=== PATIENT | female | born 2000 | race Caucasian/White ===

== ENCOUNTER 2021-09-21 00:20 | Inpatient (IN) | payer OTHER ==
[~2021-09-21] VITALS: Ht 170 cm; Wt 58.1 kg
[2021-09-21 00:49] LABS: BILIRUBIN,URINE NEGATIVE (NEGATIVE); CLARITY,URINE CLEAR; COLOR,URINE YELLOW; GLUCOSE, URINE (UA) NEGATIVE (NEGATIVE); KETONES,URINE NEGATIVE (NEGATIVE); LEUKOCYTE ESTERASE ,URINE 2+ (NEGATIVE); NITRITE,URINE NEGATIVE (NEGATIVE); PROTEIN,URINE NEGATIVE (NEGATIVE)
[2021-09-21 01:01] LABS: BACTERIA,URINE MODERATE /HPF; SQUAMOUS EPITHELIAL CELL,UR 0-2 /HPF; WBC,URINE >100 /HPF
[2021-09-21 01:22] LABS: BASOPHILS % (AUTO) 0 % (0-10); EOSINOPHILS # (AUTO) 0.2 10^3/uL (0.0-0.3); EOSINOPHILS % (AUTO) 1 % (0-10); HEMATOCRIT 41 % (35-52); HEMOGLOBIN 12.9 g/dL (11.5-16.0); LYMPHOCYTES # (AUTO) 2.3 10^3/uL (1.0-4.0); LYMPHOCYTES % (AUTO) 17 % (12-44); MEAN CORPUSCULAR HEMOGLOBIN 27 pg (25-34); MEAN CORPUSCULAR HGB CONC 32 g/dL (32-36); MEAN CORPUSCULAR VOLUME 85 fL (80-99); MEAN PLATELET VOLUME 10.1 fL (9.0-12.2); MONOCYTES # (AUTO) 0.8 10^3/uL (0.0-1.0); MONOCYTES % (AUTO) 6 % (0-12); NEUTROPHILS % (AUTO) 75 % (42-75); PLATELET COUNT 261 10^3/uL (130-400); WHITE BLOOD COUNT 13.3 10^3/uL (4.3-11.0)
[2021-09-21 01:27] LABS: ALBUMIN 4.2 GM/DL (3.2-4.5); POTASSIUM 3.5 MMOL/L (3.6-5.0)
[2021-09-21 01:30] LABS: TOTAL PROTEIN 8.2 GM/DL (6.4-8.2)
[2021-09-21 01:32] LABS: BILIRUBIN,TOTAL 0.3 MG/DL (0.1-1.0)
[2021-09-21 01:34] LABS: CREATININE SERUM 0.77 MG/DL (0.60-1.30)
[2021-09-21] MEDS ORDERED: cefTRIAXone 1 GM PRE-MIX 50 ML IV STA (01:43)
[2021-09-21] MEDS ORDERED: ONDANSETRON 4 MG/2 ML (SDV) Z0FRAN IVP ONE (01:45)
[2021-09-21] MEDS ORDERED: LACTATED RINGERS 1,000 ML IV ONE ×2 (01:45→04:44)
[2021-09-21] MEDS ORDERED: fentaNYL INJ 100 MCG/2 ML AMP IVP ONE (01:45)
--- NOTE | 2021-09-21 03:59 | ED General ---
General Chief Complaint: Back Problems Stated Complaint: LOW BACK PAIN,UTI,POSS FEVER Nursing Triage Note: PT AMB TO ED BY POV WITH C/O L SIDED LOW BACK PAIN. PT REPORTS SHE BELIEVES SHE HAD A UTI LAST WEEK (EXPERIENCED BLOOD IN URINE, PAIN WITH URINATION, AND FREQUENCY) BUT WAS NOT TREATED. PT HAD INCREASED L SIDED LOWER BACK PAIN AND NAUSEA YESTERDAY. TOOK TYLENOL 1930 WITH SOME RELIEF. DENIES FEVER, VOMITING, DIARRHEA. Source of Information: Patient Exam Limitations: No Limitations History of Present Illness Date Seen by Provider: Sep 21, 2021 Time Seen by Provider: 00:27 Initial Comments This 21-year-old young lady presents to the emergency room with complaints of left lower back pain and dysuria. She reports having symptoms of dysuria, frequency, and hematuria starting last week. Symptoms have become exponentially worse over the last 24 hours. She has been chilled but not febrile. She did develop fever in the ER of greater than 102 F. She has associated nausea but no vomiting. She has no respiratory symptoms. She has no personal history of ureteral stones but states her father has kidney stones. She denies any history of sexually transmitted infections, vaginal infections, or vaginal symptoms. Allergies and Home Medications Allergies Coded Allergies: doxycycline (Verified Allergy, Unknown, 09/21/21) Patient Home Medication List Home Medication List Reviewed: Yes Review of Systems Review of Systems Constitutional: see HPI EENTM: no symptoms reported Respiratory: no symptoms reported Gastrointestinal: see HPI Genitourinary: see HPI : No Musculoskeletal: no symptoms reported Skin: no symptoms reported Psychiatric/Neurological: No Symptoms Reported Hematologic/Lymphatic: No Symptoms Reported Immunological/Allergic: no symptoms reported Past Wixximb-Nxksxc-Tomvgl Hx Patient Social History Tobacco Use?: No Use of E-Cig and/or Vaping dev: No Substance use?: No Alcohol Use?: Yes Alcohol type: Beer, Hard Liquor Alcohol Frequency: Several times a month Pt feels they are or have been: No Immunizations Up To Date Influenza Vaccine Up-to-Date: No; Not Current First/Initial COVID19 Vaccinat: N/A Past Medical History Surgeries: No Respiratory: No Cardiac: No Neurological: No : No Reproductive Disorders: No Genitourinary: No Gastrointestinal: No Musculoskeletal: No Endocrine: No HEENT: No Cancer: No Physical Exam-Suspected Sepsis Physical Exam Vital Signs Vital Signs - First Documented 09/21/21 00:27 Temp 36.4 Pulse 108 Resp 16 B/P (MAP) 150/95 (113) Pulse Ox 100 O2 Delivery Room Air Capillary Refill : Less Than 3 Seconds Blood Pressure Mean: 113 Height, Weight, BMI Height: '" Weight: lbs. oz. kg; 20.00 BMI Method: General Appearance: WD/WN, Mild Distress, Thin HEENT: PERRL/EOMI, Normal ENT Inspection Neck: Normal Inspection Respiratory: Lungs Clear, Normal Breath Sounds, No Accessory Muscle Use Cardiovascular: No Edema, No Murmur, Tachycardia Gastrointestinal: Normal Bowel Sounds, Soft, Tenderness (Suprapubic) Back: CVA Tenderness (L); No CVA Tenderness (R) Extremity: Normal Inspection, No Pedal Edema Neurologic/Psychiatric: Alert, Oriented x3, No Motor/Sensory Deficits, Normal Mood/Affect Skin: normal color, warm/dry Focused Exam Lactate Level 09/21/21 02:00: Lactic Acid Level 1.03 Lactic Acid Level Progress/Results/Core Measures Suspected Sepsis SIRS Temperature: Pulse: 108 Respiratory Rate: 16 Laboratory Tests 09/21/21 00:40: White Blood Count 13.3H Blood Pressure 150 /95 Mean: 113 09/21/21 02:00: Lactic Acid Level 1.03 Laboratory Tests 09/21/21 00:40: Creatinine 0.77, Platelet Count 261, Total Bilirubin 0.3 Results/Orders Lab Results Laboratory Tests Test 09/21/21 00:29 09/21/21 00:40 09/21/21 02:00 Range/Units Urine Color YELLOW Urine Clarity CLEAR Urine pH 6.0 5-9 Urine Specific [place] 1.010 L 1.016-1.022 Urine Protein NEGATIVE NEGATIVE Urine Glucose (UA) NEGATIVE NEGATIVE Urine Ketones NEGATIVE NEGATIVE Urine Nitrite NEGATIVE NEGATIVE Urine Bilirubin NEGATIVE NEGATIVE Urine Urobilinogen 0.2 < = 1.0 MG/DL Urine Leukocyte Esterase 2+ H NEGATIVE Urine RBC (Auto) 3+ H NEGATIVE Urine RBC 5-10 H /HPF Urine WBC >100 H /HPF Urine Squamous Epithelial Cells 0-2 /HPF Urine Crystals NONE /LPF Urine Bacteria MODERATE H /HPF Urine Casts NONE /LPF Urine Mucus NEGATIVE /LPF Urine Culture Indicated YES White Blood Count 13.3 H 4.3-11.0 10^3/uL Red Blood Count 4.77 3.80-5.11 10^6/uL Hemoglobin 12.9 11.5-16.0 g/dL Hematocrit 41 35-52 % Mean Corpuscular Volume 85 80-99 fL Mean Corpuscular Hemoglobin 27 25-34 pg Mean Corpuscular Hemoglobin Concent 32 32-36 g/dL Red Cell Distribution Width 12.3 10.0-14.5 % Platelet Count 261 130-400 10^3/uL Mean Platelet Volume 10.1 9.0-12.2 fL Immature Granulocyte % (Auto) 1 % Neutrophils (%) (Auto) 75 42-75 % Lymphocytes (%) (Auto) 17 12-44 % Monocytes (%) (Auto) 6 0-12 % Eosinophils (%) (Auto) 1 0-10 % Basophils (%) (Auto) 0 0-10 % Neutrophils # (Auto) 10.0 H 1.8-7.8 10^3/uL Lymphocytes # (Auto) 2.3 1.0-4.0 10^3/uL Monocytes # (Auto) 0.8 0.0-1.0 10^3/uL Eosinophils # (Auto) 0.2 0.0-0.3 10^3/uL Basophils # (Auto) 0.0 0.0-0.1 10^3/uL Immature Granulocyte # (Auto) 0.1 0.0-0.1 10^3/uL Sodium Level 138 135-145 MMOL/L Potassium Level 3.5 L 3.6-5.0 MMOL/L Chloride Level 102 98-107 MMOL/L Carbon Dioxide Level 22 21-32 MMOL/L Anion Gap 14 5-14 MMOL/L Blood Urea Nitrogen 12 7-18 MG/DL Creatinine 0.77 0.60-1.30 MG/DL Estimat Glomerular Filtration Rate 96 BUN/Creatinine Ratio 16 Glucose Level 105 70-105 MG/DL Calcium Level 9.0 8.5-10.1 MG/DL Corrected Calcium 8.8 8.5-10.1 MG/DL Total Bilirubin 0.3 0.1-1.0 MG/DL Aspartate Amino Transf (AST/SGOT) 20 5-34 U/L Alanine Aminotransferase (ALT/SGPT) 15 0-55 U/L Alkaline Phosphatase 64 40-136 U/L C-Reactive Protein High Sensitivity 3.07 H 0.00-0.50 MG/DL Total Protein 8.2 6.4-8.2 GM/DL Albumin 4.2 3.2-4.5 GM/DL Serum Test, Qualitative NEGATIVE NEGATIVE Lactic Acid Level 1.03 0.50-2.00 MMOL/L My Orders Orders - MASHA OCHOA MD Ua Culture If Indicated (09/21/21 00:27) Urine Culture (09/21/21 00:29) Cbc With Automated Diff (09/21/21 01:17) Comprehensive Metabolic Panel (09/21/21 01:17) Hs C Reactive Protein (09/21/21 01:17) Hcg,Qualitative Serum (09/21/21 01:17) Ed Iv/Invasive Line Start (09/21/21 01:17) Ct Abd/Pelvis Wo(Kidney Stone) (09/21/21 01:33) Fentanyl Inj (Sublimaze Injection) (09/21/21 01:45) Ondansetron Injection (Zofran Injectio (09/21/21 01:45) Lactated Ringers (Lr 1000 Ml Iv Solution (09/21/21 01:45) Blood Culture (09/21/21 01:43) Vital Signs Adult Sepsis Patie Q15M (09/21/21 01:43) Remove Rings In Anticipation O (09/21/21 01:43) Lactic Acid Analyzer (09/21/21 01:43) Ceftriaxone 1 Gm Pre-Mix (Rocephin 1 Gm (09/21/21 01:43) Ketorolac Injection (Toradol Injection) (09/21/21 04:00) Acetaminophen Tablet (Tylenol Tablet) (09/21/21 04:00) Medications Given in ED Current Medications Medications Dose Ordered Sig/Eli Route Start Time Stop Time Status Last Admin Dose Admin Fentanyl Citrate 50 mcg ONCE ONCE IVP 09/21/21 01:45 09/21/21 01:46 DC 09/21/21 02:03 50 MCG Lactated Ringer's 1,000 ml @ 0 mls/hr Q0M ONCE IV 09/21/21 01:45 09/21/21 01:46 DC 09/21/21 02:02 0 MLS/HR Ondansetron HCl 8 mg ONCE ONCE IVP 09/21/21 01:45 09/21/21 01:46 DC 09/21/21 02:02 8 MG Vital Signs/I&O 1/2/22 1/2/22 1/2/22 1/2/22 00:27 04:13 04:52 04:53 Temp 36.4 36.9 Pulse 108 106 97 Resp 16 14 14 B/P (MAP) 150/95 (113) 120/79 117/73 (88) Pulse Ox 100 99 97 O2 Delivery Room Air Room Air Room Air Room Air Capillary Refill : Less Than 3 Seconds Blood Pressure Mean: 113 Progress Note : Progress Note Patient was found to have significant urinary tract infection on urinalysis. Pain was treated with fentanyl and later with Toradol. Zofran was used for nausea. A liter of LR was infused. Rocephin was used for initial antibiotic therapy. Diagnostic Imaging Diagonstic Imaging: CT Plain Films/CT/US/NM/MRI: abdomen Comments CT scan reviewed by me and stat rad report reviewed. No acute abnormalities were appreciated. Departure Communication (Admissions) Time/Spoke to Admitting Phy: 03:53 Dr. Perkins Impression Primary Impression: Sepsis Qualified Codes: A41.9 - Sepsis, unspecified organism Additional Impression: Pyelonephritis Disposition: ADMITTED INPATIENT Condition: Improved Admissions Decision to Admit Reason: Admit from ER (General) Decision to Admit/Date: Sep 21, 2021 Time/Decision to Admit Time: 01:40 Departure-Patient Inst. Referrals: NO,LOCAL PHYSICIAN (PCP/Family) Primary Care Physician MASHA OCHOA MD Sep 21, 2021 03:59
[2021-09-21] MEDS ORDERED: KETOROLAC 30 MG/ML VIAL IVP ONE (04:00)
[2021-09-21] MEDS ORDERED: ACETAMINOPHEN 500 MG TAB (TYLENOL) PO ONE (04:00)
[2021-09-21 04:52] VITALS: BP 117/73
--- NOTE | 2021-09-21 04:52 | Diagnostic Imaging Report ---
INDICATION: Flank pain. TECHNIQUE: Multiple contiguous axial images were obtained through the abdomen and pelvis without the use of intravenous contrast. Auto Exposure Controls were utilized during the CT exam to meet ALARA standards for radiation dose reduction. There is no prior study for comparison The visualized portions of the lung bases are clear. There is no pleural fluid collection. There is no free intraperitoneal air. Bony structures appear unremarkable. The liver and spleen and pancreas and adrenals appear normal. The kidneys bilaterally show no hydronephrosis or radiopaque calculi. There is no retroperitoneal mass or adenopathy. There is no ascites or abnormal fluid collection. Visualized loops of bowel show no obstruction or focal bowel wall thickening. There is no pelvic mass or free fluid. There is no overt adnexal lesion. IMPRESSION: Negative CT of the abdomen and pelvis without contrast. Dictated by: Dictated on workstation # [id number]
[2021-09-21] MEDS: LACTATED RINGERS 1,000 ML IV SCH ×3 (05:31→20:01)
[2021-09-21 07:39] VITALS: BP 116/71
[2021-09-21] MEDS ORDERED: cefTRIAXone 1 GM PRE-MIX 50 ML IV ONE (09:15)
[2021-09-21] MEDS: IBUPROFEN 600 MG (MOTRIN) TAB PO PRN ×2 (10:05→19:08)
[2021-09-21 11:11] VITALS: BP 125/79
[2021-09-21] MEDS: ACETAMINOPHEN 500 MG TAB (TYLENOL) PO PRN ×2 (14:15→20:46)
[2021-09-21 16:00] VITALS: BP 127/76
[2021-09-21] MEDS: ONDANSETRON 4 MG/2 ML (SDV) Z0FRAN IVP PRN (19:08)
[2021-09-21 19:58] VITALS: BP 127/76
[2021-09-21] MEDS ORDERED: NS IV 1000 ML 1,000 ML IV SCH (20:30)
[2021-09-21] MEDS ORDERED: NS IV 1000 ML 1,000 ML ONE (20:38)
--- NOTE | 2021-09-21 20:39 | History & Physical-Hospitalist ---
History of Present Illness HPI/Chief Complaint Marisol Arcos is a 21 year old female who presented with back pain. She has been having dysuria, frequency, and urgency. She has been having fevers and chills. She has been having nausea. She denies chest pain, shortness of breath, cough, vomiting, and diarrhea. She does not have any known medical problems. She does not take any medications regularly. Source: patient Exam Limitations: no limitations Date Seen 09/21/21 Time Seen by a Provider: 11:10 Attending Physician Aura Johnson MD PCP No,Local Physician Referring Physician Date of Admission Sep 21, 2021 at 03:55 Home Medications & Allergies Home Medications Reviewed patient Home Medication Reconciliation performed by pharmacy medication reconciliations lock technician and/or nursing. Patients Allergies have been reviewed. Allergies Allergies Coded Allergies doxycycline (Verified Allergy, Unknown, 09/21/21) Past Qjmoeva-Orzllp-Zkrdxw Hx Patient Social History Tobacco Use?: No Smoking Status: Never a Smoker Smokeless Tobacco Frequency: Never a User Use of E-Cig and/or Vaping dev: No Substance use?: No Alcohol Use?: Yes Alcohol type: Beer Alcohol Frequency: Couple times a week Pt feels they are or have been: No Immunizations Up To Date First/Initial COVID19 Vaccinat: N/A Second COVID19 Vaccination Jim: N/A Current Status status: No Advance Directives: No Communicates: Verbally Primary Language: Uzbek Preferred Spoken Language: Uzbek Is interpretation needed?: No Implanted or Applied Medical D: None Review of Systems Constitutional: chills, fever, malaise EENTM: no symptoms reported Respiratory: no symptoms reported Cardiovascular: no symptoms reported Gastrointestinal: nausea Genitourinary: dysuria, frequency Musculoskeletal: back pain Skin: no symptoms reported Psychiatric/Neurological: No Symptoms Reported Physical Exam Physical Exam Vital Signs Vital Signs - First Documented 09/21/21 00:27 Temp 36.4 Pulse 108 Resp 16 B/P (MAP) 150/95 (113) Pulse Ox 100 O2 Delivery Room Air Capillary Refill : Less Than 3 Seconds Height, Weight, BMI Height: '" Weight: lbs. oz. kg; 20.10 BMI Method: General Appearance: No Apparent Distress, WD/WN HEENT: PERRL/EOMI, Pharynx Normal Neck: Normal Inspection, Supple Respiratory: Lungs Clear, Normal Breath Sounds, No Respiratory Distress Cardiovascular: Regular Rate, Rhythm, No Edema, No Murmur Gastrointestinal: Normal Bowel Sounds, Non Tender, Soft Back: CVA Tenderness (L) Extremity: Normal Inspection, Non Tender, No Pedal Edema Neurologic/Psychiatric: Alert, Oriented x3, No Motor/Sensory Deficits, Normal Mood/Affect Skin: Normal Color, Warm/Dry Results Results/Procedures Labs Laboratory Tests 09/21/21 00:40 Patient resulted labs reviewed. Imaging: Reviewed Imaging Report Assessment/Plan Admission Diagnosis Sepss due to pyelonephritis Admission Status: Inpatient Order (span 2 midnights) Reason for Inpatient Admission: IV antibiotics Assessment and Plan Sepsis due to pyelonephritis SIRS+ with fever, tachycardia, and leukocytosis Flank pain CT unrevealing for pyelonephritis UA consistent with UTI Urine culture pending Blood cultures pending Rocpehin IV fluids Pain regimen Diagnosis/Problems Diagnosis/Problems (1) Sepsis Status: Acute Qualifiers: Sepsis type: sepsis due to unspecified organism Sepsis acute organ dysfunction status: without acute organ dysfunction Qualified Codes: A41.9 - Sepsis, unspecified organism (2) Pyelonephritis Status: Acute AURA JOHNSON MD Sep 21, 2021 20:39
[2021-09-22] VITALS (7 sets, daily range): BP systolic 110–133; BP diastolic 60–81
[2021-09-22] MEDS ORDERED: cefTRIAXone 1 GM IV (PRE-MIX) 50 ML IV SCH (02:00)
[2021-09-22] MEDS: LACTATED RINGERS 1,000 ML IV SCH ×3 (03:17→23:18)
[2021-09-22] MEDS: IBUPROFEN 600 MG (MOTRIN) TAB PO PRN ×2 (03:23→09:04)
[2021-09-22] MEDS ORDERED: NS IV 1000 ML 1,000 ML IV SCH (07:15)
[2021-09-22] MEDS: cefTRIAXone 2,000 MG in NS (IVPB) 50 ML IV SCH (07:55)
[2021-09-22 08:32] LABS: CALCIUM 8.5 MG/DL (8.5-10.1); CREATININE SERUM 0.71 MG/DL (0.60-1.30); POTASSIUM 3.6 MMOL/L (3.6-5.0)
[2021-09-22 08:34] LABS: BASOPHILS % (AUTO) 0 % (0-10); EOSINOPHILS % (AUTO) 0 % (0-10); HEMATOCRIT 36 % (35-52); HEMOGLOBIN 11.2 g/dL (11.5-16.0); LYMPHOCYTES # (AUTO) 1.2 10^3/uL (1.0-4.0); LYMPHOCYTES % (AUTO) 12 % (12-44); MEAN CORPUSCULAR HEMOGLOBIN 27 pg (25-34); MEAN CORPUSCULAR HGB CONC 31 g/dL (32-36); MEAN CORPUSCULAR VOLUME 85 fL (80-99); MONOCYTES # (AUTO) 0.8 10^3/uL (0.0-1.0); MONOCYTES % (AUTO) 8 % (0-12); NEUTROPHILS % (AUTO) 80 % (42-75); PLATELET COUNT 223 10^3/uL (130-400); WHITE BLOOD COUNT 10.1 10^3/uL (4.3-11.0)
[2021-09-22] MEDS ORDERED: NORG-41 PO (12:51)
[2021-09-22] MEDS: ACETAMINOPHEN 500 MG TAB (TYLENOL) PO PRN ×2 (13:10→18:10)
--- NOTE | 2021-09-22 13:22 | Progress Note - Hospitalist ---
Subjective HPI/CC On Admission Date Seen by Provider: Sep 22, 2021 Time Seen by Provider: 10:45 Marisol Arcos is a 21 year old female who presented with back pain. She has been having dysuria, frequency, and urgency. She has been having fevers and chills. She has been having nausea. She denies chest pain, shortness of breath, cough, vomiting, and diarrhea. She does not have any known medical problems. She does not take any medications regularly. Subjective/Events-last exam She had fevers and chills overnight. Her back pain is a little better. She is eating and drinking. Focused Exam Lactate Level 09/21/21 02:00: Lactic Acid Level 1.03 Objective Exam Vital Signs Vital Signs Date Time Temp Pulse Resp B/P (MAP) Pulse Ox O2 Delivery O2 Flow Rate FiO2 09/22/21 11:15 36.6 111 18 110/71 (84) 98 Room Air Capillary Refill : Less Than 3 Seconds General Appearance: No Apparent Distress, WD/WN Respiratory: Lungs Clear, Normal Breath Sounds, No Respiratory Distress Cardiovascular: Regular Rate, Rhythm, No Edema, No Murmur Gastrointestinal: Normal Bowel Sounds, Non Tender, Soft Extremity: Normal Inspection, Non Tender, No Pedal Edema Neurologic/Psychiatric: Alert, Oriented x3, Normal Mood/Affect Skin: Normal Color, Warm/Dry Results/Procedures Lab Laboratory Tests 09/22/21 08:05 Patient resulted labs reviewed. Imaging: Reviewed Imaging Report Assessment/Plan Assessment and Plan Assess & Plan/Chief Complaint Sepsis due to pyelonephritis Urine culture pending Continue Rocpehin Continue IV fluids Diagnosis/Problems Diagnosis/Problems (1) Sepsis Status: Acute Qualifiers: Sepsis type: sepsis due to unspecified organism Sepsis acute organ d ysfunction status: without acute organ dysfunction Qualified Codes: A41.9 - Sepsis, unspecified organism (2) Pyelonephritis Status: Acute ED JOHNSON MD Sep 22, 2021 13:22
[2021-09-22] MEDS ORDERED: diphenhydrAMINE 25 MG TAB (BENADRYL) PO PRN (16:45)
[2021-09-22] MEDS ORDERED: diphenhydrAMINE 25 MG TAB (BENADRYL) PO ONE (16:54)
[2021-09-22] MEDS: KETOROLAC 15 MG/ML VIAL IVP PRN ×2 (17:22→23:26)
[2021-09-23 04:00] VITALS: BP 115/77
[2021-09-23] MEDS: ACETAMINOPHEN 500 MG TAB (TYLENOL) PO PRN (04:21)
[2021-09-23] MEDS: LACTATED RINGERS 1,000 ML IV SCH ×2 (06:28→14:29)
[2021-09-23 07:28] VITALS: BP 121/71
[2021-09-23] MEDS: KETOROLAC 15 MG/ML VIAL IVP PRN ×2 (09:34→17:58)
[2021-09-23] MEDS: cefTRIAXone 2,000 MG in NS (IVPB) 50 ML IV SCH (09:34)
[2021-09-23] MEDS ORDERED: MEROPENEM 1,000 MG in NS (IVPB) 100 ML IV NR (11:00)
--- NOTE | 2021-09-23 15:07 | Progress Note - Hospitalist ---
Subjective HPI/CC On Admission Date Seen by Provider: Sep 23, 2021 Time Seen by Provider: 10:45 Marisol Arcos is a 21 year old female who presented with back pain. She has been having dysuria, frequency, and urgency. She has been having fevers and chills. She has been having nausea. She denies chest pain, shortness of breath, cough, vomiting, and diarrhea. She does not have any known medical problems. She does not take any medications regularly. Subjective/Events-last exam She is still having fevers and chills. She is still having back pain. Focused Exam Lactate Level 09/21/21 02:00: Lactic Acid Level 1.03 Objective Exam Vital Signs Vital Signs Date Time Temp Pulse Resp B/P (MAP) Pulse Ox O2 Delivery O2 Flow Rate FiO2 09/23/21 08:00 Room Air 09/23/21 07:28 36.8 89 18 121/71 (88) 98 Capillary Refill : Less Than 3 Seconds General Appearance: No Apparent Distress, WD/WN Respiratory: Lungs Clear, Normal Breath Sounds, No Respiratory Distress Cardiovascular: Regular Rate, Rhythm, No Edema, No Murmur Gastrointestinal: Normal Bowel Sounds, Non Tender, Soft Back: CVA Tenderness (L) Extremity: Normal Inspection, Non Tender, No Pedal Edema Neurologic/Psychiatric: Alert, Oriented x3, No Motor/Sensory Deficits Skin: Normal Color, Warm/Dry Results/Procedures Lab Patient resulted labs reviewed. Imaging: Reviewed Imaging Report Assessment/Plan Assessment and Plan Assess & Plan/Chief Complaint Sepsis due to pyelonephritis ESBL E coli UTI Urine culture with ESBL E coli Transition to Meropenem Continue IV fluids Diagnosis/Problems Diagnosis/Problems (1) Sepsis Status: Acute Qualifiers: Sepsis type: sepsis due to unspecified organism Sepsis acute organ dysfunction status: without acute organ dysfunction Qualified Codes: A41.9 - Sepsis, unspecified organism (2) Pyelonephritis Status: Acute (3) UTI due to extended-spectrum beta lactamase (ESBL) producing Escherichia coli Status: Acute ED JOHNSON MD Sep 23, 2021 15:07
[2021-09-23 16:11] VITALS: BP 136/77
[2021-09-23] MEDS: MEROPENEM 500 MG in NS (IVPB) 100 ML IV SCH ×2 (17:58→22:57)
[2021-09-24 00:05] VITALS: BP 144/84
[2021-09-24] MEDS: KETOROLAC 15 MG/ML VIAL IVP PRN (01:05)
[2021-09-24] MEDS: LACTATED RINGERS 1,000 ML IV SCH ×2 (02:49→08:56)
[2021-09-24] MEDS: MEROPENEM 500 MG in NS (IVPB) 100 ML IV SCH (05:22)
[2021-09-24 08:00] VITALS: BP 119/78
[2021-09-24] MEDS ORDERED: SULF1TAB38 PO (08:18)
[2021-09-24] MEDS ORDERED: TRIM/SULFAMETH 160/800 (SEPTRA DS) TAB PO NR (08:46)
[2021-09-24] MEDS ORDERED: DOCUSATE SODIUM 100 MG (COLACE) CAP PO NR (08:47)
[2021-09-24] MEDS ORDERED: polyethylene glycoL POWDER 17 GM (MIRALAX) PACK PO NR (08:47)
[2021-09-24] MEDS ORDERED: SENNA W/DOCUSATE (SENOKOT S) TABLET PO NR (08:47)
[2021-09-24] MEDS: ONDANSETRON 4 MG/2 ML (SDV) Z0FRAN IVP PRN (09:27)
--- NOTE | 2021-09-24 17:25 | Discharge Summary ---
Discharge Summary Hospital Course Was the Problem List Reviewed?: Yes Problems/Dx: (1) Sepsis Status: Acute Qualifiers: Qualified Codes: A41.9 - Sepsis, unspecified organism (2) Pyelonephritis Status: Acute (3) UTI due to extended-spectrum beta lactamase (ESBL) producing Escherichia coli Status: Acute Hospital Course Date of Admission: Sep 22, 2021 at 09:50 Admission Diagnosis : Sepsis due to pyelonephritis Family Physician/Provider: No,Local Physician Date of Discharge: 09/24/21 Discharge Diagnosis: Sepsis due to pyelonephritis, ESBL E coli UTI Hospital Course: Marisol Arcos is a 21 year old female who was admitted with sepsis due to urinary tract infection. Her UA was consistent with UTI. She was started on Rocephin. She failed to improve and continued to be tachycardic with fevers. Her urine culture returned with ESBL E coli. She was transitioned to Merrem. She remained fever free for 24 hours. She will complete a course of Bactrim as an outpatient. She was discharged home in stable condition. Labs and Pending Lab Test: Microbiology 09/21/21 Blood Culture - Preliminary, Resulted No growth 09/21/21 Urine Culture - Final, Complete Escherichia coli Home Meds Active Bactrim Ds Tablet (Sulfamethoxazole/Trimethoprim) 1 Each Tablet 1 Each PO BID 10 Days Reported Tri-Lo-Aurelia Tablet (Norgestimate-Ethinyl Estradiol) 1 Each Tablet 1 Each PO DAILY Assessment/Pt Instructions See instructions Discharge Planning: <30 minutes discharge planning Discharge Instructions Discharge Diet: No Restrictions Activity as Tolerated: Yes Discharge Physical Examination Vital Signs Vital Signs Date Time Temp Pulse Resp B/P (MAP) Pulse Ox O2 Delivery O2 Flow Rate FiO2 09/24/21 11:22 09/24/21 08:00 Room Air 09/24/21 08:00 37.0 87 18 99 General Appearance: No Apparent Distress, WD/WN Respiratory: Lungs Clear, Normal Breath Sounds, No Respiratory Distress Cardiovascular: Regular Rate, Rhythm, No Edema, No Murmur Gastrointestinal: Normal Bowel Sounds, Non Tender, Soft Extremity: Normal Inspection, Non Tender, No Pedal Edema Skin: Normal Color, Warm/Dry Neurologic/Psychiatric: Alert, Oriented x3, No Motor/Sensory Deficits, Normal Mood/Affect Allergies: Coded Allergies: doxycycline (Verified Allergy, Unknown, 1/2/22) Discharge Summary Date of Admission Sep 22, 2021 at 09:50 Date of Discharge Sep 24, 2021 at 11:20 Discharge Date: Sep 24, 2021 Discharge Time: 11:20 Admission Diagnosis Sepss due to pyelonephritis Discharge Diagnosis Sepsis due to pyelonephritis ESBL E coli UTI (1) Sepsis Status: Acute Qualifiers: Qualified Codes: A41.9 - Sepsis, unspecified organism (2) Pyelonephritis Status: Acute (3) UTI due to extended-spectrum beta lactamase (ESBL) producing Escherichia coli Status: Acute ED JOHNSON MD Sep 24, 2021 17:25
[2021-09-24] MEDS ORDERED: TRIM/SULFAMETH 160/800 (SEPTRA DS) TAB PO SCH (18:00)
== END 2021-09-24 11:20 | disposition home or self-care (01) | DRG 872 ==
LOC: ER 00:23 → 4TH 03:55 → OBSVTOIN 09-22 09:50
PROVIDERS: ADMIT Internal Medicine; ATTEND Internal Medicine
DX: A41.51 Sepsis due to Escherichia coli [E. coli] (principal); N10 Acute pyelonephritis; Z16.12 Extended spectrum beta lactamase (ESBL) resistance; Z87.442 Personal history of urinary calculi; Z88.1 Allergy status to other antibiotic agents
CPT/HCPCS: 36415; 74176; 80048; 80053; 81000; 83605; 84703; 85025; 86141; 87040; 87077; 87088; 87186